=== PATIENT | female | born 1960 ===

== ENCOUNTER → 2023-03-26 06:00 | Outpatient (CLI) | payer OTHER ==
[2023-03-26 10:11] LABS: HEMATOCRIT 35.7 % (36.0-45.00); MEAN CELL VOLUME 88.7 fL (80.00-100.00); MEAN CORPUSCULAR HEMOGLOBIN 29.8 pg (27.00-32.0); MEAN CORPUSCULAR HGB CONC 33.6 g/dl (32.0-36.0); PLATELET COUNT 259 K/uL (150-450); RED BLOOD COUNT 4.02 M/uL (4.00-6.00); RED CELL DISTRIBUTION WIDTH 17.8 % (11.5-14.5)
== END | disposition home or self-care (01) ==
LOC: LAB 06:00 → ADM 10:45 → EDSTATUS 03-30 10:45 → AMB-ENDOS 03-30 10:45
PROVIDERS: ATTEND Colon & Rectal Surgery
DX: C20 Malignant neoplasm of rectum (principal); Z85.048 Personal history of other malignant neoplasm of rectum, rectosigmoid junction, and anus; Z03.818 Encounter for observation for suspected exposure to other biological agents ruled out

== ENCOUNTER 2023-05-04 05:40 | Day surgery (SDC) | payer OTHER | END 2023-05-04 09:35 | disposition home or self-care (01) | LOC: AMB-ENDOS 05:40 | PROVIDERS: ATTEND Colon & Rectal Surgery | DX: K51.80 Other ulcerative colitis without complications (principal); K52.89 Other specified noninfective gastroenteritis and colitis; K57.30 Diverticulosis of large intestine without perforation or abscess without bleeding; K64.8 Other hemorrhoids; Z85.048 Personal history of other malignant neoplasm of rectum, rectosigmoid junction, and anus; K92.1 Melena; Z20.822 Contact with and (suspected) exposure to COVID-19 ==

== ENCOUNTER 2023-06-10 09:30 | Inpatient (IN) | payer OTHER ==
[~2023-06-10] VITALS: Ht 152.4 cm; Wt 54.4 kg
[2023-06-10] MEDS ORDERED: TIROSINT50 MCG PO (10:23)
[2023-06-10] MEDS ORDERED: [UNRECOGNIZED DRUG - OTHER] PO (10:23)
[2023-06-15] MEDS ORDERED: FAMOTIDINE40 MG (08:42)
[2023-06-15] MEDS ORDERED: ATACAND16 MG PO (08:44)
[2023-06-15 18:18] LABS: HEMATOCRIT 39.5 % (36.0-45.00); HEMOGLOBIN 13.4 g/dL (12.0-15.00); MEAN CELL VOLUME 85.8 fL (80.00-100.00); MEAN CORPUSCULAR HEMOGLOBIN 29.1 pg (27.00-32.0); MEAN CORPUSCULAR HGB CONC 33.9 g/dl (32.0-36.0); PLATELET COUNT 257 K/uL (150-450); RED BLOOD COUNT 4.61 M/uL (4.00-6.00); RED CELL DISTRIBUTION WIDTH 13.5 % (11.5-14.5)
[2023-06-16 05:33] LABS: HEMOGLOBIN 12.9 g/dL (12.0-15.00); MEAN CELL VOLUME 86.3 fL (80.00-100.00); MEAN CORPUSCULAR HEMOGLOBIN 29.4 pg (27.00-32.0); MEAN CORPUSCULAR HGB CONC 34.1 g/dl (32.0-36.0); PLATELET COUNT 228 K/uL (150-450); RED CELL DISTRIBUTION WIDTH 13.6 % (11.5-14.5)
[2023-06-16 06:45] LABS: CREATININE SERUM 0.7 mg/dL (0.55-1.02); GFR 84.51; MAGNESIUM 2.2 mg/dL (1.8-2.4); PHOSPHOROUS 3.7 mg/dL (2.5-4.9); POTASSIUM 4.65 mEq/L (3.5-5.1)
[2023-06-17 08:26] LABS: HEMATOCRIT 33.5 % (36.0-45.00); HEMOGLOBIN 11.5 g/dL (12.0-15.00); MEAN CELL VOLUME 85.6 fL (80.00-100.00); MEAN CORPUSCULAR HEMOGLOBIN 29.3 pg (27.00-32.0); MEAN CORPUSCULAR HGB CONC 34.2 g/dl (32.0-36.0); PLATELET COUNT 200 K/uL (150-450); RED BLOOD COUNT 3.91 M/uL (4.00-6.00)
[2023-06-17 08:37] LABS: CALCIUM 8.6 mg/dL (8.5-10.1); CREATININE SERUM 0.78 mg/dL (0.55-1.02); GFR 74.59; PHOSPHOROUS 2.8 mg/dL (2.5-4.9); POTASSIUM 4.49 mEq/L (3.5-5.1)
== END 2023-06-18 12:55 | disposition home or self-care (01) | DRG 331 ==
LOC: O/R 06-15 05:51 → SURG 06-15 05:51 → SURH 06-15 09:30 → SURG 06-15 12:32 → SURH 06-15 13:30 → SURG 06-18 12:55
PROVIDERS: Internal Medicine Geriatric Medicine; ADMIT Colon & Rectal Surgery; ATTEND Colon & Rectal Surgery
PROC: 0D1B4Z4 Bypass Ileum to Cutaneous, Percutaneous Endoscopic Approach (ICD-10-PCS; 2023-06-15)
PROC: 0DTN4ZZ Resection of Sigmoid Colon, Percutaneous Endoscopic Approach (ICD-10-PCS; 2023-06-15)
PROC: 07BB4ZZ Excision of Mesenteric Lymphatic, Percutaneous Endoscopic Approach (ICD-10-PCS; 2023-06-15)
PROC: 07BC4ZZ Excision of Pelvis Lymphatic, Percutaneous Endoscopic Approach (ICD-10-PCS; 2023-06-15)
PROC: 0DTP4ZZ Resection of Rectum, Percutaneous Endoscopic Approach (ICD-10-PCS; principal; 2023-06-15 13:30)
DX: C20 Malignant neoplasm of rectum (principal); D12.8 Benign neoplasm of rectum; R00.1 Bradycardia, unspecified; R59.0 Localized enlarged lymph nodes; I11.9 Hypertensive heart disease without heart failure; Z92.21 Personal history of antineoplastic chemotherapy; Z43.2 Encounter for attention to ileostomy

== ENCOUNTER 2023-10-19 07:56 | Outpatient (CLI) | payer OTHER ==
[~2023-10-19 07:56] MED LIST: ATACAND16 MG PO; FAMOTIDINE40 MG; TIROSINT50 MCG PO; [UNRECOGNIZED DRUG - OTHER] PO
== END 2023-10-19 08:07 | disposition home or self-care (01) ==
LOC: RX STUDY 07:56
PROVIDERS: ATTEND Colon & Rectal Surgery
DX: C20 Malignant neoplasm of rectum (principal)